=== PATIENT | male | born 1985 | race Caucasian/White ===

== ENCOUNTER 2021-04-05 20:15 | Emergency (ER) | payer OTHER ==
[2021-04-05] MEDS ORDERED: FLEXERIL5 MG PO (22:11)
[2021-04-05] MEDS ORDERED: SENNA-S 8.6-501 EACH PO (22:11)
== END 2021-04-05 22:28 | disposition home or self-care (01) ==
LOC: FER 20:15
DX: K59.00 Constipation, unspecified (principal); T14.8XXA Other injury of unspecified body region, initial encounter; X58.XXXA Exposure to other specified factors, initial encounter
CPT/HCPCS: 99283